=== PATIENT | female | born 1995 | race Caucasian/White ===

== ENCOUNTER 2019-06-14 20:44 | Emergency (ER) | payer BC, MEDICAID, OTHER ==
[2019-06-14 21:01] VITALS: TEMP 98.4
[2019-06-14] MEDS ORDERED: diphenhydrAMINE 50 MG/ML 1 ML VIAL IVP STA (21:17)
[2019-06-14] MEDS ORDERED: FAMOTIDINE 20 MG/2 ML VIAL IV STA (21:17)
[2019-06-14] MEDS ORDERED: SODIUM CHLORIDE 0.9% 500 ML 500 ML IV STA (21:17)
[2019-06-14] MEDS ORDERED: methylPREDNISolone SOD SUCCI 125 MG/2 ML VIAL IV STA (21:17)
--- NOTE | 2019-06-14 22:04 | ED ---
General Adult HPI - General Chief complaint: Allergic Reaction Stated complaint: Med Reaction, Rash Time Seen by Provider: 06/14/19 21:04 Source: patient, RN notes reviewed, old records reviewed Mode of arrival: ambulatory Limitations: no limitations - History of Present Illness Initial comments: 23-year-old female patient presents to ED for chief complaint of generalized urticaria which began this morning. Patient reports that she completed Bactrim for urinary tract infection 2 days ago. Patient reports that at that time she was tested for STDs which are negative. Denies any STDs at this time. I digits being . Denies any shortness of breath, nausea vomiting diarrhea. She does also report of arthralgias in her knees and her left elbow. Systemic: Pt denies fatigue, fever/chills, rash. Pt denies weakness, night sweats, weight loss. Neuro: Pt denies headache, visual disturbances, syncope or pre-syncope. HEENT: Pt denies ocular discharge or irritation, otalgia, rhinorrhea, pharyngitis or notable lymphadenopathy. Cardiopulmonary: Pt denies chest pain, SOB, heart palpitations, dyspnea on exertion. Abdominal/GI: Pt denies abdominal pain, n/v/d. : Pt denies dysuria, burning w/ urination, frequency/urgency. Denies new onset urinary or bowel incontinence. MSK: Pt denies myalgia, loss of strength or function in extremities. Neuro: Pt denies new onset weakness, paresthesias. - Related Data Home Medications Medication Instructions Recorded Confirmed Desogestrel-Ethinyl Estradiol 1 tab PO DAILY 12/01/15 12/01/15 [Desogen 28 Day Tablet] Previous Rx's Medication Instructions Recorded Cephalexin [Keflex] 500 mg PO Q12HR 7 Days #14 cap 06/14/19 EPINEPHrine (Auto Inject) [Epipen] 0.3 mg IM ONCE PRN #2 pen 06/14/19 Famotidine [Pepcid] 20 mg PO DAILY 4 Days #4 tablet 06/14/19 diphenhydrAMINE [Benadryl] 50 mg PO TID PRN 10 Days #30 06/14/19 capsule predniSONE 50 mg PO DAILY #4 tab 06/14/19 Allergies Allergy/AdvReac Type Severity Reaction Status Date / Time sulfamethoxazole Allergy Rash/Hives Verified 06/14/19 21:01 [From Bactrim] trimethoprim [From Bactrim] Allergy Rash/Hives Verified 06/14/19 21:01 Review of Systems ROS Statement: Those systems with pertinent positive or pertinent negative responses have been documented in the HPI. ROS Other: All systems not noted in ROS Statement are negative. Past Medical History Past Medical History: No Reported History History of Any Multi-Drug Resistant Organisms: None Reported Past Surgical History: No Surgical Hx Reported Past Psychological History: No Psychological Hx Reported Smoking Status: Never smoker Past Alcohol Use History: None Reported Past Drug Use History: None Reported General Exam - General Exam Comments Initial Comments: Constitutional: NAD, AOX3, Pt has pleasant affect. HEENT: NC/AT, trachea midline, neck supple, no lymphadenopathy. Posterior pharynx non erythematous, without exudates. External ears appear normal, without discharge. Mucous membranes moist. Eyes PERRLA, EOM intact. There is no scleral icterus. No pallor noted. Cardiopulmonary: RRR, no murmurs, rubs or gallops, no JVD noted. Lungs CTAB in anterior and posterior llanos. No peripheral edema. Abdominal exam: Abdomen soft and non-distended. Abdomen non-tender to palpation in all 4 quadrants. Bowel sounds active in LLQ. No hepatosplenomegaly. No ecchymosis Neuro: CN II-XII grossly intact. No nuchal rigidity. No raccon eyes, no samuel sign, no hemotympanum. No cervical spinal tenderness. MSK: Small amount of erythema and swelling to knees bilaterally, left elbow. Urticaria 2 wrists bilaterally, lumbar spine region. No posterior calf tenderness bilaterally, homans sign negative bilaterally. Posterior tibialis and radial pulse +2 bilaterally. Sensation intact in upper and lower extremities. Full active ROM in upper and lower extremities, 5/5 stregnth. Limitations: no limitations Course Vital Signs 06/14/19 20:57 Temperature 98.4 F Pulse Rate 52 L Respiratory 16 Rate Blood Pressure 120/72 O2 Sat by Pulse 98 Oximetry Medical Decision Making - Medical Decision Making 23-year-old female patient presents to ED for chief complaint of generalized urt icaria which began this morning. Patient reports that she completed Bactrim for urinary tract infection 2 days ago. Patient reports that at that time she was tested for STDs which are negative. Denies any STDs at this time. I digits being . Denies any shortness of breath, nausea vomiting diarrhea. She does also report of arthralgias in her knees and her left elbow. Patient will signs stable, afebrile. Physical exam didn't display urticaria on the wrists, small amount of erythema and swelling to knees bilaterally and left elbow. Patient was initiated on steroids, Benadryl, Pepcid. Laboratory investigations were noncompressive. UA displayed leukocyte esterase, 8 white blood cells. ECG was negative. Respiratory failure improved significantly with steroids, Benadryl, Pepcid. Discussed pelvic exam to rule out some a gonococcal infection patient declined. Reported that she had no concern for STI. Her suggestion was negative. Patient also reports that her joints feel significantly improved. Further history taking patient reports that she used a new child today which she opened of the packaging which he believes may have possibly caused the allergic reaction. Patient will discharge, strict return precautions were discussed, patient follow up with primary care provider tomorrow. Return to ER physician worsens. Patient discharged with steroids, Pepcid, Benadryl, at the time, Keflex for mild urinary tract infection. Case discussed with Dr. Burrell. - Lab Data Result diagrams: 06/14/19 21:56 06/14/19 21:56 Lab Results 06/14/19 06/14/19 06/14/19 Range/Units 21:56 21:56 22:02 WBC 4.4 (3.8-10.6) k/uL RBC 4.21 (3.80-5.40) m/uL Hgb 12.6 (11.4-16.0) gm/dL Hct 37.2 (34.0-46.0) % MCV 88.2 (80.0-100.0) fL MCH 29.9 (25.0-35.0) pg MCHC 33.9 (31.0-37.0) g/dL RDW 14.0 (11.5-15.5) % Plt Count 182 (150-450) k/uL Neutrophils % 55 % Lymphocytes % 38 % Monocytes % 3 % Eosinophils % 1 % Basophils % 1 % Neutrophils # 2.4 (1.3-7.7) k/uL Lymphocytes # 1.7 (1.0-4.8) k/uL Monocytes # 0.1 (0-1.0) k/uL Eosinophils # 0.0 (0-0.7) k/uL Basophils # 0.0 (0-0.2) k/uL Sodium 137 (137-145) mmol/L Potassium 3.8 (3.5-5.1) mmol/L Chloride 108 H (98-107) mmol/L Carbon Dioxide 22 (22-30) mmol/L Anion Gap 7 mmol/L BUN 9 (7-17) mg/dL Creatinine 0.54 (0.52-1.04) mg/dL Est GFR (CKD-EPI)AfAm >90 (>60 ml/min/1.73 sqM) Est GFR (CKD-EPI)NonAf >90 (>60 ml/min/1.73 sqM) Glucose 92 (74-99) mg/dL Calcium 8.7 (8.4-10.2) mg/dL Total Bilirubin 0.4 (0.2-1.3) mg/dL AST 21 (14-36) U/L ALT 9 (4-34) U/L Alkaline Phosphatase 74 (38-126) U/L Total Protein 6.5 (6.3-8.2) g/dL Albumin 3.6 (3.5-5.0) g/dL Urine Color Urine Appearance (Clear) Urine pH (5.0-8.0) Ur Specific Starr (1.001-1.035) Urine Protein (Negative) Urine Glucose (UA) (Negative) Urine Ketones (Negative) Urine Blood (Negative) Urine Nitrite (Negative) Urine Bilirubin (Negative) Urine Urobilinogen (<2.0) mg/dL Ur Leukocyte Esterase (Negative) Urine RBC (0-5) /hpf Urine WBC (0-5) /hpf Ur Squamous Epith Cells (0-4) /hpf Urine Bacteria (None) /hpf Urine Mucus (None) /hpf Urine HCG, Qual Not Detected (Not Detectd) 06/14/19 Range/Units 22:02 WBC (3.8-10.6) k/uL RBC (3.80-5.40) m/uL Hgb (11.4-16.0) gm/dL Hct (34.0-46.0) % MCV (80.0-100.0) fL MCH (25.0-35.0) pg MCHC (31.0-37.0) g/dL RDW (11.5-15.5) % Plt Count (150-450) k/uL Neutrophils % % Lymphocytes % % Monocytes % % Eosinophils % % Basophils % % Neutrophils # (1.3-7.7) k/uL Lymphocytes # (1.0-4.8) k/uL Monocytes # (0-1.0) k/uL Eosinophils # (0-0.7) k/uL Basophils # (0-0.2) k/uL Sodium (137-145) mmol/L Potassium (3.5-5.1) mmol/L Chloride (98-107) mmol/L Carbon Dioxide (22-30) mmol/L Anion Gap mmol/L BUN (7-17) mg/dL Creatinine (0.52-1.04) mg/dL Est GFR (CKD-EPI)AfAm (>60 ml/min/1.73 sqM) Est GFR (CKD-EPI)NonAf (>60 ml/min/1.73 sqM) Glucose (74-99) mg/dL Calcium (8.4-10.2) mg/dL Total Bilirubin (0.2-1.3) mg/dL AST (14-36) U/L ALT (4-34) U/L Alkaline Phosphatase (38-126) U/L Total Protein (6.3-8.2) g/dL Albumin (3.5-5.0) g/dL Urine Color Yellow Urine Appearance Clear (Clear) Urine pH 5.5 (5.0-8.0) Ur Specific Starr 1.010 (1.001-1.035) Urine Protein Negative (Negative) Urine Glucose (UA) Negative (Negative) Urine Ketones Negative (Negative) Urine Blood Negative (Negative) Urine Nitrite Negative (Negative) Urine Bilirubin Negative (Negative) Urine Urobilinogen <2.0 (<2.0) mg/dL Ur Leukocyte Esterase Large H (Negative) Urine RBC 2 (0-5) /hpf Urine WBC 8 H (0-5) /hpf Ur Squamous Epith Cells 2 (0-4) /hpf Urine Bacteria Rare H (None) /hpf Urine Mucus Few H (None) /hpf Urine HCG, Qual (Not Detectd) Disposition Clinical Impression: Allergic reaction, UTI (urinary tract infection) Disposition: HOME SELF-CARE Condition: Stable Instructions (If sedation given, give patient instructions): General Allergic Reaction (ED), Urinary Tract Infection in Women (ED) Additional Instructions: Take medications as directed. Follow-up with primary care provider tomorrow. Return to ER if condition worsens. Use EpiPen only for emergency anaphylaxis. Prescriptions: diphenhydrAMINE [Benadryl] 50 mg PO TID PRN 10 Days #30 capsule PRN Reason: hives EPINEPHrine (Auto Inject) [Epipen] 0.3 mg IM ONCE PRN #2 pen PRN Reason: Anaphylaxis Cephalexin [Keflex] 500 mg PO Q12HR 7 Days #14 cap Famotidine [Pepcid] 20 mg PO DAILY 4 Days #4 tablet predniSONE 50 mg PO DAILY #4 tab Is patient prescribed a controlled substance at d/c from ED?: No Referrals: None,Stated [Primary Care Provider] - 1-2 days
[2019-06-14 22:09] LABS: Basophils % (A) 1 %; Eosinophils % (A) 1 %; HCT 37.2 % (34.0-46.0); HGB 12.6 gm/dL (11.4-16.0); Lymphocytes # (A) 1.7 k/uL (1.0-4.8); Lymphocytes % (A) 38 %; MCH 29.9 pg (25.0-35.0); MCHC 33.9 g/dL (31.0-37.0); MCV 88.2 fL (80.0-100.0); Mean Platelet Volume 7.9; Monocytes # (A) 0.1 k/uL (0-1.0); Monocytes % (A) 3 %; Neutrophils # (A) 2.4 k/uL (1.3-7.7); Neutrophils % (A) 55 %; Platelet Count 182 k/uL (150-450); RBC 4.21 m/uL (3.80-5.40); WBC 4.4 k/uL (3.8-10.6)
[2019-06-14 22:12] LABS: Appearance,Urine Clear (Clear); Bacteria,Urine Rare /hpf; Bilirubin,Urine Negative (Negative); Blood,Urine Negative (Negative); Color,Urine Yellow; Glucose,Urine (UA) Negative (Negative); Ketones,Urine Negative (Negative); Leukocyte Esterase,Urine Large (Negative); Mucus,Urine Few /hpf; Nitrite,Urine Negative (Negative); PH, Urine 5.5 (5.0-8.0); Protein,Urine Negative (Negative); RBC,Urine 2 /hpf (0-5); Squamous Epithelial Cell,Urine 2 /hpf (0-4); Urobilinogen,Urine <2.0 mg/dL (<2.0); WBC,Urine 8 /hpf (0-5)
[2019-06-14 22:20] LABS: ALT 9 U/L (4-34); AST 21 U/L (14-36); African American GFR (CKD) >90 (>60 ml/min/1.73 sqM); Albumin 3.6 g/dL (3.5-5.0); Alkaline Phosphatase 74 U/L (38-126); Anion Gap 7 mmol/L; Blood Urea Nitrogen 9 mg/dL (7-17); Calcium 8.7 mg/dL (8.4-10.2); Carbon Dioxide 22 mmol/L (22-30); Chloride 108 mmol/L (98-107); Glucose 92 mg/dL (74-99); Non-African American GFR(CKD) >90 (>60 ml/min/1.73 sqM); Potassium 3.8 mmol/L (3.5-5.1); Sodium 137 mmol/L (137-145); Total Bilirubin 0.4 mg/dL (0.2-1.3); Total Protein 6.5 g/dL (6.3-8.2)
[2019-06-14 23:19] VITALS: BP 109/86; PULSE 103; RESP 18
== END 2019-06-14 23:18 | disposition home or self-care (01) ==
LOC: EC 20:44
DX: N39.0 Urinary tract infection, site not specified (principal); T36.8X5A Adverse effect of other systemic antibiotics, initial encounter; Z88.1 Allergy status to other antibiotic agents; Z88.2 Allergy status to sulfonamides
CPT/HCPCS: 36415; 80053; 85025; 81001; 81025; 99284; 96374; 96375 ×2; 96361 ×2; J1200; J2930